=== PATIENT | male | born 1965 | race Hispanic/Latino ===

== ENCOUNTER 2018-07-05 19:07 | Emergency (ER) | payer OTHER, BC ==
[2018-07-05 19:30] VITALS: RESP 18; TEMP 98.2; O2SAT 99
--- NOTE | 2018-07-05 19:57 | ED PDOC ---
Arrival/HPI - History of Present Illness Time/Duration: 1 week Symptom Onset: Sudden Symptom Course: Improving Quality: Aching Context: Work <Clifford Álvarez - Last Filed: 07/05/18 22:12> <Faraz Simental - Last Filed: 07/06/18 00:23> - General Chief Complaint: Lower Extremity Problem/Injury Time Seen by Provider: 07/05/18 19:28 - History of Present Illness Narrative History of Present Illness (Text): 07/05/18 19:52 Mr. Stiles is a 52 year old male who presents to ED with a painful R foot after due to a piano falling on his foot on Friday. 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 The patient states he was unable to go to an ED at the time because he could not leave work and could not get a doctor's appointment. He did incur a small cut on the top of his foot, which he states has been healing. He reports that following the accident his foot was very ecchymotic and the bruising has subsided substantially. He has used pink table salt over the wound to help with healing which he read on the internet. The patient has been able to weight-bear throughout the week. Pt states he has taken Ibuprofen which helped with his pain, has preferred Naproxen for pain relief in the past. He has had his last tetanus shot within the past 5 years. The patient states he has no medical history, takes no medications, and has no allergies to medication. Pt denies any fevers, numbness, anesthesia or paresthesia. (Clifford Álvarez) Past Medical History - Provider Review Nursing Documentation Reviewed: Yes - Infectious Disease Hx of Infectious Diseases: None - Tetanus Immunization Tetanus Immunization: Up to Date - Psychiatric Hx Substance Use: No - Anesthesia Hx Anesthesia: No <Clifofrd Álvarez - Last Filed: 07/05/18 22:12> Family/Social History - Physician Review Nursing Documentation Reviewed: Yes Family/Social History: No Known Family HX Smoking Status: Never Smoked Hx Alcohol Use: No Hx Substance Use: No <Clifford Álvarez - Last Filed: 07/05/18 22:12> Allergies/Home Meds <Clifford Álvarez - Last Filed: 07/05/18 22:12> <KamilleFaraz - Last Filed: 07/06/18 00:23> Allergies/Adverse Reactions: Allergies No Known Allergies Allergy (Verified 07/05/18 19:30) Review of Systems - Physician Review All systems were reviewed & negative as marked: Yes - Review of Systems Constitutional: Normal. absent: Fatigue, Fevers Eyes: Normal. absent: Vision Changes, Photophobia ENT: Normal. absent: Sore Throat, Rhinorrhea Respiratory: Normal. absent: SOB, Cough, Wheezing Cardiovascular: Normal. absent: Chest Pain, Palpitations Gastrointestinal: Normal. absent: Abdominal Pain, Nausea, Vomiting Genitourinary Male: Normal. absent: Dysuria, Frequency Musculoskeletal: Normal. absent: Back Pain, Neck Pain Skin: Skin Lesions Neurological: Normal. absent: Headache, Dizziness Psychiatric: Normal. absent: Anxiety, Depression <RubénbudClifford - Last Filed: 07/05/18 22:12> Physical Exam Vital Signs Reviewed: Yes Temperature: Afebrile Blood Pressure: Normal Pulse: Regular Respiratory Rate: Normal Appearance: Positive for: Well-Appearing. No: Non-Toxic Pain Distress: Mild Mental Status: Positive for: Alert and Oriented X 3 - Systems Exam Head: Present: Atraumatic, Normocephalic Pupils: Present: PERRL Extroacular Muscles: Present: EOMI Conjunctiva: Present: Normal. No: Injected, Icteric Mouth: Present: Moist Mucous Membranes. No: Normal Tounge, Normal Teeth Pharnyx: Present: Normal. No: ERYTHEMA, EXUDATE Nose (External): Present: Atraumatic. No: Abrasion Neck: Present: Normal Range of Motion. No: JVD Respiratory/Chest: Present: Clear to Auscultation, Good Air Exchange. No: Respiratory Distress, Accessory Muscle Use Cardiovascular: Present: Regular Rate and Rhythm, Normal S1, S2. No: Murmurs Abdomen: Present: Tenderness, Normal Bowel Sounds. No: Distention, Peritoneal Signs, Rebound, Guarding Upper Extremity: Present: Normal Inspection, Normal ROM, NORMAL PULSES. No: Cyanosis, Edema Lower Extremity: Present: NORMAL PULSES, Normal ROM (Denies pain with flexion/ extension, inversion/eversion of R foot), Tenderness (+Point tenderness over area of cut/abrasion), Erythema (+mild erythema over site of wound), Neurovascularly Intact. No: Edema, CALF TENDERNESS, Cyanosis, Swelling, Temperature Abnormalties Neurological: Present: GCS=15, CN II-XII Intact, Speech Normal Skin: Present: Warm, Dry, Normal Color, Abrasion (+healing cut on top of R foot one inch in length), Other (+Mild ecchymosis of R great toe). No: Rashes Psychiatric: Present: Alert, Oriented x 3, Normal Concentration <Clifford Álvarez - Last Filed: 07/05/18 22:12> Vital Signs Temp Pulse Resp BP Pulse Ox 07/05/18 23:07 71 18 110/73 99 07/05/18 19:26 98.2 F 74 18 109/68 99 Medical Decision Making - RAD Interpretation Weave Room Supervisor: ED Physician <Clifford Álvarez - Last Filed: 07/05/18 22:12> <Faraz Simental - Last Filed: 07/06/18 00:23> ED Course and Treatment: Traumatic injury to R foot: * X-Ray R foot, 3 views * Naproxen 550mg PO BID for pain * Pt instructed to return to ED if condition of wound worsens drastically or fevers develop, otherwise can follow up with PCP as outpatient 07/05/18 22:14 X-ray revealed fracture at base of first metatarsal * Splint applied * Crutches provided, patient instructed to remain non weight-bearing on R foot * Instructions to f/u tomorrow with ortho, Dr. Warner (Clifford Álvarez) Impression: Pt seen and evaluated with medical device engineer. Aware and agree with HPI, clinical findings, plan, and management. Pt presented for right foot pain s/p piano falling on to his foot 6 days prior. 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 / has examined the patient and agrees with the treatment plan. <Faraz Simental - Last Filed: 07/06/18 00:23> Disposition/Present on Arrival - Present on Arrival Any Indicators Present on Arrival: No History of DVT/PE: No History of Uncontrolled Diabetes: No Urinary Catheter: No History of Decub. Ulcer: No History Surgical Site Infection Following: None - Disposition Have Diagnosis and Disposition been Completed?: Yes Disposition Time: 22:26 Patient Plan: Discharge <Clifford Álvarez - Last Filed: 07/05/18 22:12> <Faraz Simental - Last Filed: 07/06/18 00:23> - Disposition Diagnosis: Fracture of metatarsal bone of right foot Disposition: HOME/ ROUTINE Condition: IMPROVED Discharge Instructions (ExitCare): Foot Fracture (DC) Additional Instructions: CLINT STILES, thank you for letting us take care of you today. Your provider was Faraz Simental MD and you were treated for metatarsal fracture. The emergency medical care you received today was directed at your acute symptoms. If you were prescribed any medication, please fill it and take as directed. It may take several days for your symptoms to resolve. Return to the Emergency Department if your symptoms worsen, do not improve, or if you have any other problems. Please contact your doctor or call one of the physicians/clinics you have been referred to that are listed on the Patient Visit Information form that is included in your discharge packet. Bring any paperwork you were given at discharge with you along with any medications you are taking to your follow up visit. Our treatment cannot replace ongoing medical care by a primary care provider outside of the emergency department. Thank you for allowing the [facility] team to be part of your care today. If you had an X-Ray or CT scan: A Radiologist will review the ED reading if any change in treatment is needed we will contact you. If you had a blood, urine, or wound culture: It will take several days for the results, if any change in treatment is needed we will contact you. If you had an STI test: It will take 48 hours for the results. Please call after 1 week if you have not heard back. Prescriptions: Naproxen [Naprosyn] 500 mg PO BID PRN 7 Days #14 tablet PRN Reason: Pain, Mild (1-3) Referrals: Zhou Vazquez MD [Primary Care Provider] - Follow up with primary Hipolito Warner DO [Staff Provider] - Follow up with primary Forms: [facility] ([place]uan), WORK NOTE
[2018-07-05] MEDS ORDERED: Naproxen 550 mg Tab PO SCH (20:00)
[2018-07-05 23:27] VITALS: BP 110/73; PULSE 71
--- NOTE | 2018-07-06 10:40 | RAD ---
Date of service: 07/05/2018 PROCEDURE: Right Foot Radiographs. HISTORY: foot trauma COMPARISON: None. FINDINGS: BONES: Plantar and Achilles Tendon insertion calcaneal spurs. JOINTS: Normal. SOFT TISSUES: Normal. OTHER FINDINGS: None. IMPRESSION: No acute findings related to/accounting for the clinical presentation. Additional benign and/or incidental findings described above.
== END 2018-07-05 23:28 | disposition home or self-care (01) ==
LOC: ED 19:07
DX: S92.311A Displaced fracture of first metatarsal bone, right foot, initial encounter for closed fracture (principal); W22.8XXA Striking against or struck by other objects, initial encounter; Y92.219 Unspecified school as the place of occurrence of the external cause; Y99.0 Civilian activity done for income or pay